=== PATIENT | male | born 1990 | race Caucasian/White ===

== ENCOUNTER 2020-10-08 21:17 | Inpatient (IN) | payer BC ==
[~2020-10-08] VITALS: Ht 180.3 cm; Wt 71.7 kg
--- NOTE | 2020-10-08 22:05 | NUR ---
PATIENT BIB FAMILY C/O FEELING WEAK, HAVING CHILLS, GENERALIZED BODY REDNESS. PATIENT IS A/O X 4, RR EVEN AND UNLABORED, NO SIGNS OF SOB NOTED. PATIENT CONNECTED TO MONITOR.
[2020-10-08] MEDS ORDERED: ONDANSETRON HCL/PF 4 MG/2 ML VIAL ONE (22:57)
[2020-10-08] MEDS ORDERED: ONDANSETRON HCL/PF 4 MG/2 ML VIAL IVP ONE (23:00)
[2020-10-08] MEDS ORDERED: IV NS 0.9% 1,000 ML BAG IV ONE (23:00)
[2020-10-08 23:04] LABS: BASOPHILS % (AUTO) 0.1 % (0.0-2.0); EOSINOPHILS % (AUTO) 0.3 % (0.0-6.0); HEMATOCRIT 45 % (39-51); HEMOGLOBIN 14.5 g/dL (13.5-17.5); LYMPHOCYTES # (AUTO) 1.8 K/uL (0.8-4.8); LYMPHOCYTES % (AUTO) 10.8 % (20.0-44.0); MEAN CORPUSCULAR HGB CONC 32 g/dl (31.0-36.0); MEAN CORPUSCULAR VOLUME 80 fL (80-96); MONOCYTES # (AUTO) 0.8 K/uL (0.1-1.30); MONOCYTES % (AUTO) 4.7 % (2.0-12.0); NEUTROPHILS # (AUTO) 13.6 K/uL (1.8-8.9); NEUTROPHILS % (AUTO) 84.1 % (43.0-81.0); PLATELET COUNT (AUTO) 219 K/uL (150-450); RED BLOOD CELL COUNT(AUTO) 5.65 MIL/uL (4.5-6.0); WHITE BLOOD COUNT (AUTO) 16.2 K/uL (4.3-11.0)
[2020-10-08 23:13] LABS: CALCIUM, SERUM 8.9 mg/dL (8.5-10.1); CREATININE 1.4 mg/dL (0.6-1.3); POTASSIUM 3.9 mmol/L (3.5-5.1)
[2020-10-08 23:26] LABS: ALBUMIN 4.5 g/dL (3.4-5.0); BILIRUBIN,DIRECT 0.1 mg/dL (0.0-0.2); BILIRUBIN,TOTAL 0.3 mg/dL (0.2-1.0)
--- NOTE | 2020-10-08 23:53 | NUR ---
COVID SWAB COLLECTED AND SENT TO LAB
[2020-10-09] MEDS ORDERED: ASPIRIN 325 MG TABLET ONE (00:09)
[2020-10-09] MEDS ORDERED: ASPIRIN 325 MG TABLET PO ONE (00:30)
--- NOTE | 2020-10-09 01:34 | NUR ---
called house sup for tele bed
--- NOTE | 2020-10-09 01:49 | NUR ---
tele bed: [phone]
--- NOTE | 2020-10-09 02:09 | NUR ---
REPORT GIVEN TO CHARGE NURSE
[2020-10-09] MEDS ORDERED: ONDANSETRON HCL/PF 4 MG/2 ML VIAL IVP PRN (02:30)
[2020-10-09] MEDS ORDERED: MAG HYDROX/AL HYDROX/SIMETH 30 ML UDC PO PRN (02:30)
[2020-10-09] MEDS ORDERED: ACETAMINOPHEN 325 MG TABLET PO PRN (02:30)
[2020-10-09 03:00] VITALS: BP 126/87
--- NOTE | 2020-10-09 03:03 | NUR ---
PATIENT TRANSFERRED UNDER ACLS
[2020-10-09 04:00] VITALS: BP 102/40
[2020-10-09 06:14] LABS: BASOPHILS % (AUTO) 0.3 % (0.0-2.0); EOSINOPHILS % (AUTO) 1.5 % (0.0-6.0); HEMATOCRIT 37 % (39-51); HEMOGLOBIN 12.4 g/dL (13.5-17.5); LYMPHOCYTES % (AUTO) 18.5 % (20.0-44.0); MEAN CORPUSCULAR HGB CONC 33 g/dl (31.0-36.0); MEAN CORPUSCULAR VOLUME 80 fL (80-96); MONOCYTES # (AUTO) 0.6 K/uL (0.1-1.30); MONOCYTES % (AUTO) 5.6 % (2.0-12.0); NEUTROPHILS # (AUTO) 8.2 K/uL (1.8-8.9); NEUTROPHILS % (AUTO) 74.1 % (43.0-81.0); PLATELET COUNT (AUTO) 178 K/uL (150-450); WHITE BLOOD COUNT (AUTO) 11.1 K/uL (4.3-11.0)
[2020-10-09 07:03] LABS: CALCIUM, SERUM 8.5 mg/dL (8.5-10.1); MAGNESIUM 2.2 mg/dL (1.8-2.4); POTASSIUM 3.9 mmol/L (3.5-5.1)
--- NOTE | 2020-10-09 07:30 | NUR ---
RN NOTES SEEN PATIENT IN BED RESTING, AWAKE AND VERBALLY RESPONSIVE. BREATHING EVEN AND UNLABORED, TOLERATING ROOM AIR, NOT IN ACUTE DISTRESS. AMBULATORY W/ STEADY GAIT. SANDER MACHINE, SINUS ANKUR, NO CARDIAC DISTRESS. SAFETY MEASURES IN PLACE. WILL CONTINUE TO MONITOR.
[2020-10-09 08:00] VITALS: BP 122/57
[2020-10-09] MEDS ORDERED: ASPIRIN 81 MG TAB.CHEW PO SCH (09:00)
[2020-10-09] MEDS ORDERED: METOPROLOL TARTRATE INJ 5 MG/5 ML AMPUL IVP PRN (10:00)
[2020-10-09] MEDS ORDERED: NITROGLYCERIN 0.4 MG/TAB BOTTLE SL ONE (10:00)
[2020-10-09] MEDS ORDERED: IV NS 0.9% 500 ML IV PRN (10:00)
[2020-10-09] MEDS ORDERED: CT SWABBABLE VALVE TRANS SET 1 EA INFUS.SET MC ONE (10:02)
[2020-10-09] MEDS ORDERED: IV NS 0.9% 250 ML IV ONE (10:02)
[2020-10-09] MEDS ORDERED: IOHEXOL-350 100 ML VIAL IV ONE (10:02)
[2020-10-09] MEDS ORDERED: METOPROLOL TARTRATE INJ 5 MG/5 ML AMPUL ONE (10:02)
[2020-10-09] MEDS ORDERED: NITROGLYCERIN 0.4 MG/TAB BOTTLE ONE (10:02)
--- NOTE | 2020-10-09 10:13 | NUR ---
RN NOTES PATIENT SEEN BY DR. BARROW FOR CARDIO CONSULT; ORDER FOR CTCA TODAY. PATIENT PICKED UP BY [facility] VIA WHEELCHAIR.
[2020-10-09 10:26] VITALS: BP 124/74
--- NOTE | 2020-10-09 10:28 | NUR ---
RN NOTES; Post CTA, patient able to tolerate the procedure. patient is in stable condition.
[2020-10-09] MEDS ORDERED: IV NS 0.9% 1,000 ML IV PRN (10:30)
--- NOTE | 2020-10-09 11:33 | NUR ---
RN NOTES PATIENT RETURNED FROM CTCA PROCEDURE VIA WHEELCHAIR, ACCOMPANIED BY 1 [employer].
[2020-10-09] MEDS: POTASSIUM CHLORIDE 20 MEQ TAB.PRT.SR PO SCH ×3 (11:35→13:54)
--- NOTE | 2020-10-09 15:36 | NUR ---
RN NOTES RECEIVED RESULT OF CTCA AND REVIEWED BY DR. BARROW, CLEARED FOR D/C FROM CARDIO PERSPECTIVE. DR. BURNETT AWARE W/ ORDER FOR D/C TO HOME TODAY W/ CARDIO FOLLOW-UP IN 1 WEEK. DISCHARGE INSTRUCTION AND EDUCATION PROVIDED TO PATIENT. DISCHARGE FORM AND BELONGINGS LIST FORM SIGNED BY PATIENT AND ALL BELONGINGS ACCOUNTED FOR. NAME ARMBAND AND IV LINE REMOVED. PATIENT IS AMBULATORY AND ACCOMPANIED TO THE LOBBY W/ PATIENT'S DAD PICKING UP PATIENT VIA PRIVATE CAR. CHARGE NURSE AND MD AWARE OF DISCHARGE.
[2020-10-09] MEDS ORDERED: ATORVASTATIN 10 MG TABLET PO SCH ×3 (22:00)
== END 2020-10-09 15:45 | disposition home or self-care (01) | DRG 281 ==
LOC: ER 22:22 → TELE 10-09 02:08
PROVIDERS: ADMIT Internal Medicine; ATTEND Internal Medicine
DX: I21.A1 Myocardial infarction type 2 (principal); N17.9 Acute kidney failure, unspecified; E86.0 Dehydration; D72.829 Elevated white blood cell count, unspecified; Z20.822 Contact with and (suspected) exposure to COVID-19; I95.9 Hypotension, unspecified; T78.40XA Allergy, unspecified, initial encounter; X58.XXXA Exposure to other specified factors, initial encounter
CPT/HCPCS: 36415; 71045-TC; 75574; 80048-TC; 80061-TC; 80076-TC; 82962-TC; 83735-TC; 84484-TC; 85025-TC; 87081-TC; 93307-TC; C9803; G0378; J2405; J3490; J7030; J7040; J7050; Q9967